=== PATIENT | male | born 1950 | race African-American/Black ===

== ENCOUNTER 2017-12-29 02:09 | Emergency (ER) | payer BC, MEDICARE, OTHER ==
[2017-12-29] MEDS ORDERED: NORMAL SALINE 1000 ML 1,000 ML IV ONE ×2 (02:44→05:22)
[2017-12-29] MEDS ORDERED: HALOPERIDOL LACTATE INJ 5 MG/1 ML VIAL IM ONE (02:53)
[2017-12-29] MEDS ORDERED: HALOPERIDOL LACTATE INJ 5 MG/1 ML VIAL ONE (02:54)
[2017-12-29 04:01] LABS: ABSOLUTE BASOPHILS # (AUTO) 0.1 10^3/uL (0.0-0.2); ABSOLUTE LYMPHOCYTES (AUTO) 1.4 10^3/uL (0.5-4.7); ABSOLUTE MONOCYTES (AUTO) 1.3 10^3/uL (0.1-1.4); ABSOLUTE NEUT (AUTO) 13.6 10^3/uL (1.7-8.2); BASOPHILS % (AUTO) 0.4 % (0-2); EOSINOPHILS % (AUTO) 0.2 % (0-6); HEMATOCRIT 41.5 % (37.9-51.0); HEMOGLOBIN 13.9 g/dL (13.5-17.0); LYMPHOCYTES % (AUTO) 8.6 % (13-45); MEAN CORPUSCULAR HEMOGLOBIN 27.5 pg (27.0-33.4); MEAN CORPUSCULAR HGB CONC 33.6 g/dL (32.0-36.0); MEAN CORPUSCULAR VOLUME 82 fl (80-97); PLATELET COUNT 273 10^3/uL (150-450); RED BLOOD COUNT 5.06 10^6/uL (4.35-5.55); RED CELL DISTRIBUTION WIDTH 15.8 % (11.5-14.0); SEGMENTED NEUTROPHILS % (AUTO) 82.8 % (42-78); TOTAL CELLS COUNTED % (AUTO) 100 %; WHITE BLOOD COUNT 16.4 10^3/uL (4.0-10.5)
[2017-12-29 04:29] LABS: ALANINE AMINOTRANSFERASE 21 U/L (21-72); ALBUMIN 4.5 g/dL (3.5-5.0); ALKALINE PHOSPHATASE 92 U/L (38-126); ANION GAP 10 (5-19); ASPARTATE AMINO TRANSFERASE 33 U/L (17-59); BILIRUBIN,DIRECT 0.5 mg/dL (0.0-0.4); BILIRUBIN,TOTAL 0.7 mg/dL (0.2-1.3); BLOOD UREA NITROGEN 16 mg/dL (7-20); CALCIUM 9.6 mg/dL (8.4-10.2); CARBON DIOXIDE 27 mmol/L (22-30); CHLORIDE 106 mmol/L (98-107); GLUCOSE 133 mg/dL (75-110); POTASSIUM 4.6 mmol/L (3.6-5.0); SODIUM 143.2 mmol/L (137-145); TOTAL PROTEIN 7.9 g/dL (6.3-8.2)
[2017-12-29 04:31] LABS: ACETAMINOPHEN < 10 ug/mL (10-30); ALCOHOL < 10 mg/dL (NONE DETECTED); SALICYLATE < 1.0 mg/dL (2.0-20.0)
[2017-12-29] MEDS ORDERED: LORAZEPAM INJ 2 MG/1 ML VIAL IV ONE (04:43)
[2017-12-29] MEDS ORDERED: LORAZEPAM INJ 2 MG/1 ML VIAL ONE (04:44)
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
[2017-12-29 07:39] LABS: APPEARANCE,URINE SLIGHTLY-CLOUDY; BILIRUBIN,URINE NEGATIVE (NEGATIVE); COLOR,URINE YELLOW; GLUCOSE, URINE NEGATIVE (NEGATIVE); KETONES,URINE 20 mg/dL (NEGATIVE); LEUKOCYTE ESTERASE,URINE NEGATIVE (NEGATIVE); NITRITE,URINE NEGATIVE (NEGATIVE); PROTEIN,URINE NEGATIVE (NEGATIVE); URINE SPECIFIC GRAVITY 1.023; UROBILINOGEN,URINE NEGATIVE mg/dL (<2.0)
[2017-12-29 08:03] LABS: URINE AMPHETAMINES SCREEN NEGATIVE; URINE BARBITURATES SCREEN NEGATIVE; URINE BENZODIAZEPINES SCREEN NEGATIVE; URINE COCAINE SCREEN NEGATIVE; URINE MARIJUANA (THC) SCREEN NEGATIVE; URINE METHADONE SCREEN NEGATIVE; URINE PHENCYCLIDINE SCREEN NEGATIVE
--- NOTE | 2017-12-29 10:01 | ER Document Report ---
Doctor's Note Notes: 12/29/17 10:00 Rounds: Chart reviewed and patient interviewed. Patient is here for evaluation of agitation. He supposedly has a psychiatric disorder, according to his , and is been out of his medications for an unknown period of time. Was brought in during the night and had to receive Haldol and Ativan to control his behavior. All lab studies are essentially normal except for a white cell count of 16,400, but no site for significant infection noted. Patient also had some slight tachycardia, but has received 2 L of fluid and his heart rate this morning is 102-103. Patient seems to answer questions appropriately. Has no complaints or request. Patient appears to be medically stable for transfer or discharge. Obie Whiting MD
[2017-12-29] MEDS: CITALOPRAM HYDROBROMIDE 20 MG TABLET PO SCH (11:59)
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
[2017-12-29] MEDS: RISPERIDONE 0.25 MG TABLET PO SCH ×2 (13:24→17:32)
[2017-12-29] MEDS ORDERED: CLONIDINE 0.2 MG/24 HR PATCH.TDWK TD SCH (13:30)
[2017-12-29] MEDS ORDERED: ZIPRASIDONE MESYLATE INJ/PF 20 MG SDV IM ONE ×2 (15:27→18:05)
--- NOTE | 2017-12-29 17:02 | EKG REPORT ---
SEVERITY:- ABNORMAL ECG - SINUS TACHYCARDIA NONSPECIFIC T ABNORMALITIES, INFERIOR LEADS : Confirmed by: Pamella Gay MD 29-Dec-2017 17:00:57
[2017-12-30] MEDS: ZIPRASIDONE MESYLATE INJ/PF 20 MG SDV IM PRN ×2 (00:48→18:15)
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
[2017-12-30] MEDS: CITALOPRAM HYDROBROMIDE 20 MG TABLET PO SCH (11:02)
[2017-12-30] MEDS: RISPERIDONE 0.25 MG TABLET PO SCH (11:02)
[2017-12-31] MEDS ORDERED: CITALOPRAM HYDROBROMIDE 20 MG TABLET PO ONE (09:51)
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
[2017-12-31 13:03] VITALS: BP 127/74
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
== END 2017-12-31 13:16 | disposition home or self-care (01) ==
LOC: ER 02:09
DX: F19.239 Other psychoactive substance dependence with withdrawal, unspecified (principal); F19.251 Other psychoactive substance dependence with psychoactive substance-induced psychotic disorder with hallucinations; R45.1 Restlessness and agitation; R00.0 Tachycardia, unspecified; F32.9 Major depressive disorder, single episode, unspecified; T43.226A Underdosing of selective serotonin reuptake inhibitors, initial encounter; Z91.128 Patient's intentional underdosing of medication regimen for other reason; Z91.14 Patient's other noncompliance with medication regimen
CPT/HCPCS: 93005; 99285; 96372; 96361; 96374; 36415; 80307 ×4; 85025; 80053; 81001; 93010; J1630; J3490; J2060; J3486 ×2; A9270 ×5

== ENCOUNTER 2018-01-02 07:48 | Emergency (ER) | payer MEDICARE ==
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
[2018-01-02 08:19] LABS: ABSOLUTE EOSINOPHILS # (AUTO) 0.1 10^3/uL (0.0-0.6); ABSOLUTE LYMPHOCYTES (AUTO) 1.6 10^3/uL (0.5-4.7); ABSOLUTE MONOCYTES (AUTO) 0.6 10^3/uL (0.1-1.4); ABSOLUTE NEUT (AUTO) 6.3 10^3/uL (1.7-8.2); BASOPHILS % (AUTO) 0.3 % (0-2); EOSINOPHILS % (AUTO) 0.9 % (0-6); HEMATOCRIT 36.5 % (37.9-51.0); HEMOGLOBIN 12.5 g/dL (13.5-17.0); MEAN CORPUSCULAR HEMOGLOBIN 27.6 pg (27.0-33.4); MEAN CORPUSCULAR HGB CONC 34.2 g/dL (32.0-36.0); MEAN CORPUSCULAR VOLUME 81 fl (80-97); MONOCYTES % (AUTO) 7.4 % (3-13); PLATELET COUNT 269 10^3/uL (150-450); RED BLOOD COUNT 4.54 10^6/uL (4.35-5.55); RED CELL DISTRIBUTION WIDTH 15.3 % (11.5-14.0); SEGMENTED NEUTROPHILS % (AUTO) 73.4 % (42-78); TOTAL CELLS COUNTED % (AUTO) 100 %; WHITE BLOOD COUNT 8.6 10^3/uL (4.0-10.5)
[2018-01-02 08:43] LABS: ACETAMINOPHEN < 10 ug/mL (10-30); ALANINE AMINOTRANSFERASE 28 U/L (21-72); ALCOHOL < 10 mg/dL (NONE DETECTED); ALKALINE PHOSPHATASE 80 U/L (38-126); ANION GAP 9 (5-19); ASPARTATE AMINO TRANSFERASE 31 U/L (17-59); BILIRUBIN,DIRECT 0.4 mg/dL (0.0-0.4); BILIRUBIN,TOTAL 0.8 mg/dL (0.2-1.3); BLOOD UREA NITROGEN 6 mg/dL (7-20); CALCIUM 9.2 mg/dL (8.4-10.2); CARBON DIOXIDE 27 mmol/L (22-30); CHLORIDE 101 mmol/L (98-107); GLUCOSE 118 mg/dL (75-110); POTASSIUM 4.1 mmol/L (3.6-5.0); SALICYLATE < 1.0 mg/dL (2.0-20.0); SODIUM 136.6 mmol/L (137-145); TOTAL PROTEIN 6.8 g/dL (6.3-8.2)
[2018-01-02] MEDS ORDERED: CITALOPRAM HYDROBROMIDE 20 MG TABLET PO ONE (09:48)
[2018-01-02] MEDS ORDERED: HALOPERIDOL 5 MG TABLET PO ONE (09:49)
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
[2018-01-02] MEDS ORDERED: ZIPRASIDONE MESYLATE INJ/PF 20 MG SDV IM ONE ×2 (10:50→12:48)
[2018-01-02] MEDS ORDERED: CHLORPROMAZINE HCL INJ 25 MG/1 ML AMPULE IM ONE (13:21)
[2018-01-02] MEDS: CHLORPROMAZINE HCL INJ 25 MG/1 ML AMPULE IM PRN ×2 (13:28→21:57)
[2018-01-02] MEDS ORDERED: BENZTROPINE MESYLATE INJ 2 MG/2 ML AMPULE IM SCH (13:30)
[2018-01-02] MEDS ORDERED: CLONIDINE 0.2 MG/24 HR PATCH.TDWK TD ONE (17:29)
[2018-01-02] MEDS ORDERED: CLONIDINE 0.2 MG/24 HR PATCH.TDWK ONE (17:46)
[2018-01-03] MEDS ORDERED: OLANZAPINE INJ/PF 10 MG SDV IM ONE (00:08)
--- NOTE | 2018-01-03 10:35 | ER Document Report ---
Doctor's Note Notes: 01/03/18 10:34 Rounds: Chart reviewed and patient sleeping at this time so not interviewed. Patient required both Geodon and Thorazine IM to control his behavior after he returned to the emergency department yesterday afternoon. Vital signs of all been normal. Patient reportedly had behavioral changes secondary to having stopped his Celexa. I am ordering him 40 mg of Celexa p.o. now. Vital signs are all essentially normal. Lab studies were all essentially normal. Patient appears to be medically stable for transfer or discharge. Obie Whiting MD
[2018-01-03] MEDS ORDERED: CITALOPRAM HYDROBROMIDE 20 MG TABLET PO ONE ×2 (10:36→14:00)
[2018-01-03] MEDS ORDERED: BENZTROPINE MESYLATE 1 MG TABLET PO SCH (13:30)
[2018-01-03 15:39] VITALS: BP 130/78
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
== END 2018-01-03 15:39 | disposition home or self-care (01) ==
LOC: ER 07:48
DX: F23 Brief psychotic disorder (principal); F19.959 Other psychoactive substance use, unspecified with psychoactive substance-induced psychotic disorder, unspecified; Z78.1 Physical restraint status
CPT/HCPCS: 99285; 96372; 36415; 80307 ×3; 85025; 80053; A9270 ×4; J0515; J3230; J3490; J3486

== ENCOUNTER 2018-11-28 11:46 | Inpatient (IN) | payer OTHER, MEDICARE ==
--- NOTE | 2018-11-28 12:58 | ER Document Report ---
ED Medical Screen (RME) - General Chief Complaint: General Weakness Stated Complaint: WEAKNESS Time Seen by Provider: 11/28/18 12:52 Primary Care Provider: JAYNA AMARO PA-C [Primary Care Provider] - Follow up as needed Mode of Arrival: Wheelchair Information source: Patient, Relative Notes: 68-year-old male presented to ED for complaint of increased weakness and not being able to walk due to pain in both knees. He states he has generalized weakness and pain in both knees. He states he was diagnosed with Lyme's disease several months ago and is been taken doxycycline and has been getting progressively weaker since then. He states on he was walking into the house and fell due to the weakness. He states his family had to get him up and during this assistance they have caused him to have spasms in his arms and legs. He states he can no longer walk at all. He states he is dizzy at times. He denies any fevers chills shortness of breath or anything else going on at this time. I have greeted and performed a rapid initial assessment of this patient. A comprehensive ED assessment and evaluation of the patient, analysis of test results and completion of medical decision making process will be conducted by an additional ED providers. - Related Data Allergies/Adverse Reactions: No Known Allergies Allergy (Unverified 12/29/17 03:04) Past Medical History Renal/ Medical History: Denies: Hx Peritoneal Dialysis Physical Exam - Vital signs Vitals: Temp Pulse Resp BP Pulse Ox 98.6 F 88 18 133/80 H 96 11/28/18 11:51 11/28/18 11:51 11/28/18 11:51 11/28/18 11:51 11/28/18 11:51 Course - Vital Signs Vital signs: Temp Pulse Resp BP Pulse Ox 98.6 F 88 18 133/80 H 96 11/28/18 11:51 11/28/18 11:51 11/28/18 11:51 11/28/18 11:51 11/28/18 11:51 Doctor's Discharge - Discharge Referrals: JAYNA AMARO PA-C [Primary Care Provider] - Follow up as needed
[2018-11-28 13:53] LABS: ABSOLUTE EOSINOPHILS # (AUTO) 0.1 10^3/uL (0.0-0.6); ABSOLUTE LYMPHOCYTES (AUTO) 1.7 10^3/uL (0.5-4.7); ABSOLUTE MONOCYTES (AUTO) 0.8 10^3/uL (0.1-1.4); ABSOLUTE NEUT (AUTO) 8.6 10^3/uL (1.7-8.2); BASOPHILS % (AUTO) 0.3 % (0-2); EOSINOPHILS % (AUTO) 0.7 % (0-6); HEMATOCRIT 41.9 % (37.9-51.0); HEMOGLOBIN 14.1 g/dL (13.5-17.0); LYMPHOCYTES % (AUTO) 15.4 % (13-45); MEAN CORPUSCULAR HEMOGLOBIN 27.3 pg (27.0-33.4); MEAN CORPUSCULAR HGB CONC 33.6 g/dL (32.0-36.0); MEAN CORPUSCULAR VOLUME 81 fl (80-97); MONOCYTES % (AUTO) 7.1 % (3-13); PLATELET COUNT 287 10^3/uL (150-450); RED BLOOD COUNT 5.15 10^6/uL (4.35-5.55); RED CELL DISTRIBUTION WIDTH 15.4 % (11.5-14.0); SEGMENTED NEUTROPHILS % (AUTO) 76.5 % (42-78); TOTAL CELLS COUNTED % (AUTO) 100 %; WHITE BLOOD COUNT 11.3 10^3/uL (4.0-10.5)
[2018-11-28 14:14] LABS: ALBUMIN 4.1 g/dL (3.5-5.0); ALKALINE PHOSPHATASE 93 U/L (38-126); ANION GAP 9 (5-19); ASPARTATE AMINO TRANSFERASE 17 U/L (17-59); BILIRUBIN,DIRECT 0.3 mg/dL (0.0-0.4); BILIRUBIN,TOTAL 0.5 mg/dL (0.2-1.3); BLOOD UREA NITROGEN 17 mg/dL (7-20); CALCIUM 9.3 mg/dL (8.4-10.2); CARBON DIOXIDE 26 mmol/L (22-30); CHLORIDE 103 mmol/L (98-107); CREATINE KINASE 101 U/L (55-170); GLUCOSE 98 mg/dL (75-110); POTASSIUM 4.1 mmol/L (3.6-5.0); TOTAL PROTEIN 6.6 g/dL (6.3-8.2)
[2018-11-28 14:24] LABS: CREATINE KINASE MB 0.62 ng/mL (<4.55)
[2018-11-28 14:25] LABS: TROPONIN I < 0.012 ng/mL
--- NOTE | 2018-11-28 14:27 | ER Document Report ---
ED General - General Chief Complaint: General Weakness Stated Complaint: WEAKNESS Time Seen by Provider: 11/28/18 12:52 Mode of Arrival: Wheelchair Notes: Patient is a 68-year-old male that presents to the emergency department for chief complaint of weakness, inability to walk. Patient states that for nearly a week he has been having progressive weakness, particularly in the left side, he said numbness that he feels in both arms and both legs as well. But he has not been able to get out of bed, has had to wear a brief, because he is been unable to get to the bathroom, due to the weakness. He states he was recently diagnosed with Lyme's disease that was worked up by a [place] physician, and was started on doxycycline, he is schizophrenic, but has no new medications. He denies being on any medications for cholesterol, heart disease, or lung disease. Denies prior history of strokes or TIAs. He denies any significant pain at this time, denies headaches, but does admit to having occasional lightheadedness. Denies any blurred vision or loss of vision. Past Medical History: Schizophrenia, Lyme's disease Past Surgical History: Denies any recent surgery Social History: Lives at home with family, denies tobacco, alcohol or illicit drug use. Family History: Reviewed and noncontributory for presenting illness Allergies: Reviewed, see documented allergy list. REVIEW OF SYSTEMS: Other than noted above, the 12 point review of systems was reviewed with the patient and were negative, all pertinent findings are included in the HPI. PHYSICAL EXAMINATION: Vital signs reviewed, nursing noted reviewed. GENERAL: Well-appearing, well-nourished and in no acute distress. HEAD: Atraumatic, normocephalic. EYES: Eyes appear normal, extraocular movements intact, sclera anicteric, conjunctiva are normal. ENT: nares patent, oropharynx clear without exudates. Moist mucous membranes. NECK: Normal range of motion, supple without lymphadenopathy LUNGS: Breath sounds clear to auscultation bilaterally and equal. No wheezes rales or rhonchi. HEART: Regular rate and rhythm without murmurs ABDOMEN: Soft, nontender, normoactive bowel sounds. No rebound, guarding, or rigidity. No masses appreciated. EXTREMITIES: Nontender, good range of motion, no pitting or edema. NEUROLOGICAL: Patient is noted to have weakness in his left upper extremity, and left lower extremity, compared to the right, and states he feels a decreased sensation in both the upper and lower extremities bilaterally, but seems to be somewhat worse on the left compared to the right. Visual mcnamara are intact, no significant facial asymmetry, no dysarthria, the patient does seem to have a hard time understanding what I am asking him to do for physical exam, which may be a mild degree of receptive aphasia. PSYCH: Normal mood, normal affect. SKIN: Warm, Dry, normal turgor, no rashes or lesions noted on exposed skin - Related Data Allergies/Adverse Reactions: No Known Allergies Allergy (Unverified 12/29/17 03:04) Past Medical History - General Information source: Patient, Relative - Social History Smoking Status: Never Smoker Family History: Reviewed & Not Pertinent Patient has suicidal ideation: No Patient has homicidal ideation: No Renal/ Medical History: Denies: Hx Peritoneal Dialysis Psychiatric Medical History: Reports: Hx Schizophrenia Physical Exam - Vital signs Vitals: Temp Pulse Resp BP Pulse Ox 98.6 F 88 18 133/80 H 96 11/28/18 11:51 11/28/18 11:51 11/28/18 11:51 11/28/18 11:51 11/28/18 11:51 Course - Re-evaluation Re-evalutation: Patient seen and examined vital signs reviewed. Laboratory data and imaging were ordered as appropriate for the patient's presen ting symptoms and complaint, with consideration of any critical or life threatening conditions that may be associated with their obtained history and exam as noted above. Results were reviewed when available and demonstrated negative CT imaging of the head, blood work was otherwise unremarkable, UA negative as well, patient's clinical exam was concerning for a CVA, that subacute, and likely happened a few days ago, but is now continued to have persistent weakness in the left upper and left lower extremity. The patient was re-evaluated and was stable, no further neurological changes. Evaluation was most consistent with left-sided weakness, concern for subacute CVA Results were discussed with the patient at this point after careful consideration I feel that that patient should be admitted to the hospital. This was discussed with the patient that it is in the best interest for their care to be admitted for further evaluation and management. Patient agreed with this plan of care. A call was placed to the admitting provider, Davion Michael PA-C who graciously accepted the patient onto their service. *Note is created using voice recognition software and may contain spelling, syntax or grammatical errors. Laboratory 11/28/18 11/28/18 11/28/18 13:34 13:34 13:34 WBC 11.3 H RBC 5.15 Hgb 14.1 Hct 41.9 MCV 81 MCH 27.3 MCHC 33.6 RDW 15.4 H Plt Count 287 Lymph % (Auto) 15.4 [place] % (Auto) 7.1 Eos % (Auto) 0.7 Baso % (Auto) 0.3 Absolute Neuts (auto) 8.6 H Absolute Lymphs (auto) 1.7 Absolute Monos (auto) 0.8 Absolute Eos (auto) 0.1 Absolute Basos (auto) 0.0 Seg Neutrophils % 76.5 PT INR Sodium 138.0 Potassium 4.1 Chloride 103 Carbon Dioxide 26 Anion Gap 9 BUN 17 Creatinine 0.76 Est GFR ( Amer) > 60 Est GFR (MDRD) Non-Af > 60 Glucose 98 Calcium 9.3 Total Bilirubin 0.5 Direct Bilirubin 0.3 Neonat Total Bilirubin Not Reportable Neonat Direct Bilirubin Not Reportable Neonat Indirect Bili Not Reportable AST 17 ALT 13 Alkaline Phosphatase 93 Creatine Kinase 101 CK-MB (CK-2) 0.62 Troponin I < 0.012 Total Protein 6.6 Albumin 4.1 Lipase 64.3 TSH Free T4 Free T3 pg/mL Urine Color Urine Appearance Urine pH Ur Specific [place] Urine Protein Urine Glucose (UA) Urine Ketones Urine Blood Urine Nitrite Urine Bilirubin Urine Urobilinogen Ur Leukocyte Esterase Urine WBC (Auto) Urine RBC (Auto) Squamous Epi Cells Auto Urine Mucus (Auto) Urine Ascorbic Acid Urine Opiates Screen Urine Methadone Screen Ur Barbiturates Screen Ur Phencyclidine Scrn Ur Amphetamines Screen U Benzodiazepines Scrn Urine Cocaine Screen U Marijuana (THC) Screen 11/28/18 11/28/18 11/28/18 13:34 13:34 15:07 WBC RBC Hgb Hct MCV MCH MCHC RDW Plt Count Lymph % (Auto) [place] % (Auto) Eos % (Auto) Baso % (Auto) Absolute Neuts (auto) Absolute Lymphs (auto) Absolute Monos (auto) Absolute Eos (auto) Absolute Basos (auto) Seg Neutrophils % PT 13.7 INR 1.04 Sodium Potassium Chloride Carbon Dioxide Anion Gap BUN Creatinine Est GFR ( Amer) Est GFR (MDRD) Non-Af Glucose Calcium Total Bilirubin Direct Bilirubin Neonat Total Bilirubin Neonat Direct Bilirubin Neonat Indirect Bili AST ALT Alkaline Phosphatase Creatine Kinase CK-MB (CK-2) Troponin I Total Protein Albumin Lipase TSH 0.68 Free T4 1.21 Free T3 pg/mL 3.76 Urine Color YELLOW Urine Appearance SLIGHTLY-CLOUDY Urine pH 6.0 Ur Specific [place] 1.028 Urine Protein NEGATIVE Urine Glucose (UA) NEGATIVE Urine Ketones 20 H Urine Blood NEGATIVE Urine Nitrite NEGATIVE Urine Bilirubin NEGATIVE Urine Urobilinogen NEGATIVE Ur Leukocyte Esterase NEGATIVE Urine WBC (Auto) 2 Urine RBC (Auto) 1 Squamous Epi Cells Auto <1 Urine Mucus (Auto) MOD Urine Ascorbic Acid NEGATIVE Urine Opiates Screen Urine Methadone Screen Ur Barbiturates Screen Ur Phencyclidine Scrn Ur Amphetamines Screen U Benzodiazepines Scrn Urine Cocaine Screen U Marijuana (THC) Screen 11/28/18 15:07 WBC RBC Hgb Hct MCV MCH MCHC RDW Plt Count Lymph % (Auto) [place] % (Auto) Eos % (Auto) Baso % (Auto) Absolute Neuts (auto) Absolute Lymphs (auto) Absolute Monos (auto) Absolute Eos (auto) Absolute Basos (auto) Seg Neutrophils % PT INR Sodium Potassium Chloride Carbon Dioxide Anion Gap BUN Creatinine Est GFR ( Amer) Est GFR (MDRD) Non-Af Glucose Calcium Total Bilirubin Direct Bilirubin Neonat Total Bilirubin Neonat Direct Bilirubin Neonat Indirect Bili AST ALT Alkaline Phosphatase Creatine Kinase CK-MB (CK-2) Troponin I Total Protein Albumin Lipase TSH Free T4 Free T3 pg/mL Urine Color Urine Appearance Urine pH Ur Specific [place] Urine Protein Urine Glucose (UA) Urine Ketones Urine Blood Urine Nitrite Urine Bilirubin Urine Urobilinogen Ur Leukocyte Esterase Urine WBC (Auto) Urine RBC (Auto) Squamous Epi Cells Auto Urine Mucus (Auto) Urine Ascorbic Acid Urine Opiates Screen NEGATIVE Urine Methadone Screen NEGATIVE Ur Barbiturates Screen NEGATIVE Ur Phencyclidine Scrn NEGATIVE Ur Amphetamines Screen NEGATIVE U Benzodiazepines Scrn NEGATIVE Urine Cocaine Screen NEGATIVE U Marijuana (THC) Screen NEGATIVE Brain MRI with MRA 11/28/18 00:00 IMPRESSION: No evidence for significant stenosis or occlusion at the [place]. Head MRI 11/28/18 00:00 IMPRESSION: 1. No evidence for acute ischemia. Chronic microvascular ischemic changes. 2. High signal intensity on the T2-weighted images and FLAIR imaging at the medial right mastoid air cells, may be secondary to cholesterol granuloma or mastoiditis. Evaluation with contrast-enhanced MRI may be worthwhile. EVIDENCE OF ACUTE STROKE: NO. Head CT 11/28/18 14:25 IMPRESSION: MILD CHRONIC CHANGES OF ATROPHY AND MICROVASCULAR ISCHEMIA. NO ACUTE PROCESS. EVIDENCE OF ACUTE STROKE: NO. Chest X-Ray 11/28/18 16:05 IMPRESSION: NO ACUTE DISEASE. - Vital Signs Vital signs: Temp Pulse Resp BP Pulse Ox 98.4 F 77 18 142/87 H 98 11/28/18 20:38 11/28/18 20:38 11/28/18 17:24 11/28/18 20:38 11/28/18 20:38 - Laboratory Result Diagrams: 11/28/18 13:34 11/28/18 13:34 Laboratory results interpreted by me: 11/28/18 11/28/18 13:34 15:07 WBC 11.3 H RDW 15.4 H Absolute Neuts (auto) 8.6 H Urine Ketones 20 H - EKG Interpretation by Me Additional EKG results interpreted by me: EKG demonstrates sinus rhythm with a ventricular rate of 90 bpm, normal axis, normal intervals, T wave inversions in leads III and aVF, no ST elevation, compared with prior EKG from 12/29/2017, without significant change. Discharge - Discharge Clinical Impression: Left-sided weakness Condition: Stable Disposition: ADMITTED INPATIENT Admitting Provider: Kayla (Hospitalist) - Davion Michael PA-C Unit Admitted: [facility]
--- NOTE | 2018-11-28 15:10 | RADIOLOGY REPORT (SQ) ---
EXAM DESCRIPTION: CT HEAD WITHOUT COMPLETED DATE/TIME: 11/28/2018 2:52 pm REASON FOR STUDY: left sided weakness COMPARISON: None. TECHNIQUE: Axial images acquired through the brain without intravenous contrast. Images reviewed wi th bone, brain and subdural windows. Images stored on PACS. All CT scanners at this facility use dose modulation, iterative reconstruction, and/or weight based d osing when appropriate to reduce radiation dose to as low as reasonably achievable (ALARA). [facility]: Dose Right [facility]: CareDose [facility]: Dose Right [facility]: Teradose 4D [facility]: Smart Blueseed RADIATION DOSE: CT Rad equipment meets quality standard of care and radiation dose reduction techniq ues were employed. CTDIvol: 48.6 mGy. DLP: 930 mGy-cm. mGy. LIMITATIONS: None. FINDINGS: VENTRICLES: Prominent. CEREBRUM: No masses. No hemorrhage. No midline shift. Areas of low density in the white matter mos t likely due to chronic micro-vascular ischemic change. No evidence for acute infarction. CEREBELLUM: No masses. No hemorrhage. No alteration of density. No evidence for acute infarction. EXTRAAXIAL SPACES: Mild age-related involutional change. No fluid collections. No masses. ORBITS AND GLOBE: No intra- or extraconal masses. Normal contour of globe without masses. CALVARIUM: No fracture. PARANASAL SINUSES: No fluid or mucosal thickening. SOFT TISSUES: No mass or hematoma. OTHER: No other significant finding. IMPRESSION: MILD CHRONIC CHANGES OF ATROPHY AND MICROVASCULAR ISCHEMIA. NO ACUTE PROCESS. EVIDENCE OF ACUTE STROKE: NO. TECHNICAL DOCUMENTATION: JOB ID: [id number] Quality ID # [id number]: Final reports with documentation of one or more dose reduction techniques (e.g., Au tomated exposure control, adjustment of the mA and/or kV according to patient size, use of iterative reconstruction technique) 2010 [email or web address]- All Rights Reserved Reading location - IP/workstation name: [email or web address]
[2018-11-28 15:35] LABS: APPEARANCE,URINE SLIGHTLY-CLOUDY; BILIRUBIN,URINE NEGATIVE (NEGATIVE); COLOR,URINE YELLOW; GLUCOSE, URINE NEGATIVE (NEGATIVE); KETONES,URINE 20 mg/dL (NEGATIVE); LEUKOCYTE ESTERASE,URINE NEGATIVE (NEGATIVE); NITRITE,URINE NEGATIVE (NEGATIVE); PROTEIN,URINE NEGATIVE (NEGATIVE); URINE SPECIFIC GRAVITY 1.028; UROBILINOGEN,URINE NEGATIVE mg/dL (<2.0)
[2018-11-28] MEDS ORDERED: ZOLPIDEM TARTRATE 5 MG TABLET PO PRN (15:58)
[2018-11-28] MEDS ORDERED: ACETAMINOPHEN 325 MG TABLET PO PRN (15:58)
[2018-11-28] MEDS ORDERED: ONDANSETRON HCL INJ/PF 4 MG/2 ML SDV IV PRN (15:58)
[2018-11-28] MEDS ORDERED: MAGNESIUM HYDROXIDE SUSP 30 ML UDCUP PO PRN (15:58)
[2018-11-28] MEDS ORDERED: ONDANSETRON 4 MG TAB.RAPDIS PO PRN (15:58)
[2018-11-28] MEDS ORDERED: NORMAL SALINE 1000 ML 1,000 ML IV PRN (15:58)
[2018-11-28 16:32] LABS: INTERNATIONAL RATION (INR) 1.04; PROTHROMBIN TIME 13.7 SEC (11.4-15.4)
--- NOTE | 2018-11-28 16:35 | PDOC H&P ---
History of Present Illness Admission Date/PCP: 11/28/18 15:44 JAYNA AMARO PA-C Patient admitted through the emergency room on 11/28/2018 for progressive weakness history come from a combination of the family in the room as well as patient. Story is that for over a month now the patient has been having progressive weakness starting in both hands going up into the arms and now down into the feet legs. Patient is state that about 2 weeks ago he was diagnosed with Lyme's disease someone at the [place] given doxycycline 100 mg twice daily. Patient has no history of being bitten by a tick. Patient has no histo ry of fever chills nausea vomiting or rash. Patient denies any headache, no nuchal rigidity, no photophobia. No recent change in weight For the last week he has been at bedrest because if he gets out of bed he "falls down" family states that he is "wobbly" family brought him into the hospital tod ay to the emergency room because he is getting weaker. History of Present Illness: JUANA CALL is a 68 year old male Past Medical History Medical History: None Cardiac Medical History: Reports: None Pulmonary Medical History: Reports: None Neurological Medical History: Reports: None Malignancy Medical History: Reports: None Musculoskeltal Medical History: Reports: None Psychiatric Medical History: Reports: Schizoaffective Disorder - They state that the patient is schizophrenic and is on medication. Social History Smoking Status: Never Smoker - Advance Directive Resuscitation Status: Do Not Resuscitate Family History Family History: Reviewed & Not Pertinent Parental Family History Reviewed: No Children Family History Reviewed: No Sibling(s) Family History Reviewed.: No Medication/Allergy Home Medications: Clonidine HCl 0.1 mg PO QHS #7 tablet 12/31/17 Allergies/Adverse Reactions: No Known Allergies Allergy (Unverified 12/29/17 03:04) Review of Systems Constitutional: ABSENT: chills, fever(s), headache(s), weight gain, weight loss Eyes: ABSENT: visual disturbances Cardiovascular: ABSENT: chest pain, dyspnea on exertion, edema, orthropnea, palpitations Respiratory: ABSENT: cough, hemoptysis Gastrointestinal: ABSENT: abdominal pain, constipation, diarrhea, hematemesis, hematochezia, nausea, vomiting Neurological: PRESENT: frequent falls, lack of coordination, numbness, paresthesias, weakness Psychiatric: ABSENT: anxiety, depression, homidical ideation, suicidal ideation Physical Exam Vital Signs: Temp Pulse Resp BP Pulse Ox 98.6 F 88 18 133/80 H 96 11/28/18 11:51 11/28/18 11:51 11/28/18 11:51 11/28/18 11:51 11/28/18 11:51 Intake & Output 11/27/18 11/28/18 11/29/18 06:59 06:59 06:59 Weight 92.6 kg General appearance: PRESENT: mild distress Head exam: PRESENT: atraumatic, normocephalic Eye exam: PRESENT: conjunctiva pink, EOMI, PERRLA. ABSENT: scleral icterus Neck exam: ABSENT: carotid bruit, JVD, lymphadenopathy, thyromegaly Respiratory exam: PRESENT: clear to auscultation yanelis. ABSENT: rales, rhonchi, wheezes Cardiovascular exam: PRESENT: RRR. ABSENT: diastolic murmur, rubs, systolic murmur Pulses: PRESENT: normal dorsalis pedis pul GI/Abdominal exam: PRESENT: normal bowel sounds, soft. 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 Biceps and triceps motor exam bilaterally is normal. Patient has weakness of both lower extremities left grea ter than right. Patient has difficulty with rapid alternating movements bilaterally Results Laboratory Results: 11/28/18 13:34 11/28/18 13:34 11/28/18 11/28/18 11/28/18 13:34 13:34 15:07 WBC 11.3 H RBC 5.15 Hgb 14.1 Hct 41.9 MCV 81 MCH 27.3 MCHC 33.6 RDW 15.4 H Plt Count 287 Seg Neutrophils % 76.5 Sodium 138.0 Potassium 4.1 Chloride 103 Carbon Dioxide 26 Anion Gap 9 BUN 17 Creatinine 0.76 Est GFR ( Amer) > 60 Glucose 98 Calcium 9.3 Total Bilirubin 0.5 AST 17 Alkaline Phosphatase 93 Total Protein 6.6 Albumin 4.1 Lipase 64.3 Urine Color YELLOW Urine Appearance SLIGHTLY-CLOUDY Urine pH 6.0 Ur Specific [place] 1.028 Urine Protein NEGATIVE Urine Glucose (UA) NEGATIVE Urine Ketones 20 H Urine Blood NEGATIVE Urine Nitrite NEGATIVE Ur Leukocyte Esterase NEGATIVE Urine WBC (Auto) 2 Urine RBC (Auto) 1 11/28/18 11/28/18 13:34 13:34 Creatine Kinase 101 CK-MB (CK-2) 0.62 Troponin I < 0.012 Impressions: Head CT 11/28/18 14:25 IMPRESSION: MILD CHRONIC CHANGES OF ATROPHY AND MICROVASCULAR ISCHEMIA. NO ACUTE PROCESS. EVIDENCE OF ACUTE STROKE: NO. Assessment and Plan - Diagnosis (1) Generalized muscle weakness Is this a current diagnosis for this admission?: Yes Plan: Since generalized weakness has been going on for over a month now and worsened within the last week. Patient cannot get out of bed now due to weakness legs. Patient was having to have someone feeding as a spasticity and weakness in his hands. Patient is never had anything like this before. It is progressive started in the hands, went to his arms, then down into his legs (2) Schizophrenia Is this a current diagnosis for this admission?: Yes Plan: Patient has had schizophrenia for a long time and is on medication, unfo rtunately ever we do not have those meds and by the family (3) Lyme disease, unspecified Is this a current diagnosis for this admission?: Yes Plan: According to the family this was diagnosed at the [place] [facility] approximately 2 weeks ago. Patient was placed on doxycycline twice daily. Patient and family are unsure of other than blood work how the test was diagnosed. Patient was waiting to see a neurologist according to the family, but no appointment has been made (4) Left-sided weakness Is this a current diagnosis for this admission?: Yes Plan: Patient has generalized weakness but the left side both upper and lower is definitely weaker than the right. This is been ongoing for over a month with gradual worsening - Time Time Spent with patient: 25-34 minutes - Lyme's disease is certainly consideration however other neurologic diseases such as DM Berg, ALS are possibility. Talk to the family about trying to get a neurology consult in the next day or 2. Patient will have MRI and MRA as well as LP performed over the next day or so. When asked about CODE STATUS patient did not want to be resuscitated
[2018-11-28 16:56] LABS: FREE T3 3.76 pg/mL (2.77-5.27); FREE T4 (FREE THYROXINE) 1.21 ng/dL (0.78-2.19)
[2018-11-28 17:10] LABS: THYROID STIMULATING HORMONE 0.68 uIU/mL (0.47-4.68)
[2018-11-28 17:57] LABS: URINE AMPHETAMINES SCREEN NEGATIVE; URINE BARBITURATES SCREEN NEGATIVE; URINE BENZODIAZEPINES SCREEN NEGATIVE; URINE COCAINE SCREEN NEGATIVE; URINE MARIJUANA (THC) SCREEN NEGATIVE; URINE METHADONE SCREEN NEGATIVE; URINE PHENCYCLIDINE SCREEN NEGATIVE
--- NOTE | 2018-11-28 18:05 | RADIOLOGY REPORT (SQ) ---
EXAM DESCRIPTION: CHEST 2 VIEWS COMPLETED DATE/TIME: 11/28/2018 5:06 pm REASON FOR STUDY: Weakness COMPARISON: 08/17/2009. EXAM PARAMETERS: NUMBER OF VIEWS: two views TECHNIQUE: Digital Frontal and Lateral radiographic views of the chest acquired. RADIATION DOSE: NA LIMITATIONS: none FINDINGS: LUNGS AND PLEURA: No acute infiltrates or effusions. MEDIASTINUM AND HILAR STRUCTURES: No masses or contour abnormalities. HEART AND VASCULAR STRUCTURES: The heart and pulmonary vasculature are normal. . BONES: No acute findings. HARDWARE: None in the chest. OTHER: No other significant finding. IMPRESSION: NO ACUTE DISEASE. TECHNICAL DOCUMENTATION: JOB ID: [id number] 2010 [employer]- All Rights Reserved Reading location - IP/workstation name: [email or web address]
--- NOTE | 2018-11-28 19:50 | RADIOLOGY REPORT (SQ) ---
EXAM DESCRIPTION: MRI HEAD WITHOUT COMPLETED DATE/TIME: 11/28/2018 7:01 pm REASON FOR STUDY: progressive weakness COMPARISON: CT head 11/28/2018, 08/17/2009 TECHNIQUE: Multiplanar imaging includes non-contrasted T1, T2, FLAIR, and Diffusion with ADC map seq uences. Images stored on PACS. LIMITATIONS: None. FINDINGS: ANATOMY: Normal vascular flow voids. Pituitary fossa normal. CSF SPACES: Normal in size and contour. No hemorrhage. CEREBRUM: Scattered high-signal intensity lesions throughout the white matter on FLAIR imaging with d istribution suggesting chronic micro-vascular ischemic change. Sulci and gyri normal in size and con tour. No evidence of hemorrhage, mass effect or extraaxial fluid collection. POSTERIOR FOSSA: No signal alteration. No hemorrhage. No edema or mass effect. There is high signal intensity on the T2 weighted images and FLAIR imaging at the medial right mastoid air cells. DIFFUSION: Negative for acute or sub-acute infarction. ORBITS: Symmetrical globes. PARANASAL SINUSES: No air-fluid levels. IMPRESSION: 1. No evidence for acute ischemia. Chronic microvascular ischemic changes. 2. High signal intensity on the T2-weighted images and FLAIR imaging at the medial right mastoid air cells, may be secondary to cholesterol granuloma or mastoiditis. Evaluation with contrast-enhanced M RI may be worthwhile. EVIDENCE OF ACUTE STROKE: NO. TECHNICAL DOCUMENTATION: JOB ID: [id number] 2010 [employer]- All Rights Reserved Reading location - IP/workstation name: [email or web address]
--- NOTE | 2018-11-28 19:55 | RADIOLOGY REPORT (SQ) ---
EXAM DESCRIPTION: MRA HEAD WITHOUT COMPLETED DATE/TIME: 11/28/2018 7:01 pm REASON FOR STUDY: progressive weakness COMPARISON: MRI head 11/28/2018. TECHNIQUE: Axial 3-D [id number] acquisition imaging performed through the brain in the area of t he [place]. Images reformatted using 3-D MIPS. LIMITATIONS: None. FINDINGS: SOURCE IMAGES: No unexpected findings on source images. No large masses. 3-D MIP: No occlusions. No significant stenosis. IMPRESSION: No evidence for significant stenosis or occlusion at the [place]. TECHNICAL DOCUMENTATION: JOB ID: [id number] 2010 [employer]- All Rights Reserved Reading location - IP/workstation name: [email or web address]
[2018-11-28] MEDS ORDERED: OLANZAPINE 5 MG TABLET PO SCH (22:00)
[2018-11-28] MEDS ORDERED: BENZTROPINE MESYLATE 1 MG TABLET PO SCH (22:00)
[2018-11-28] MEDS: FAMOTIDINE 20 MG TABLET PO SCH (23:10)
--- NOTE | 2018-11-29 00:15 | EKG REPORT ---
SEVERITY:- ABNORMAL ECG - SINUS RHYTHM NONSPECIFIC T ABNORMALITIES, INFERIOR LEADS : Confirmed by: Pamella Gay MD 29-Nov-2018 00:14:36
[2018-11-29] MEDS: DOXYCYCLINE HYCLATE 100 MG TABLET PO SCH ×2 (05:31→09:30)
[2018-11-29 07:06] LABS: ABSOLUTE LYMPHOCYTES (AUTO) 1.5 10^3/uL (0.5-4.7); ABSOLUTE MONOCYTES (AUTO) 0.9 10^3/uL (0.1-1.4); ABSOLUTE NEUT (AUTO) 12.4 10^3/uL (1.7-8.2); BASOPHILS % (AUTO) 0.1 % (0-2); EOSINOPHILS % (AUTO) 0.3 % (0-6); HEMATOCRIT 40.5 % (37.9-51.0); HEMOGLOBIN 13.6 g/dL (13.5-17.0); MEAN CORPUSCULAR HEMOGLOBIN 27.3 pg (27.0-33.4); MEAN CORPUSCULAR HGB CONC 33.6 g/dL (32.0-36.0); MEAN CORPUSCULAR VOLUME 81 fl (80-97); MONOCYTES % (AUTO) 6.1 % (3-13); PLATELET COUNT 289 10^3/uL (150-450); RED CELL DISTRIBUTION WIDTH 15.2 % (11.5-14.0); SEGMENTED NEUTROPHILS % (AUTO) 83.5 % (42-78); TOTAL CELLS COUNTED % (AUTO) 100 %; WHITE BLOOD COUNT 14.8 10^3/uL (4.0-10.5)
[2018-11-29 07:27] LABS: ALBUMIN 4.2 g/dL (3.5-5.0); ALKALINE PHOSPHATASE 94 U/L (38-126); ANION GAP 11 (5-19); ASPARTATE AMINO TRANSFERASE 18 U/L (17-59); BILIRUBIN,DIRECT 0.3 mg/dL (0.0-0.4); BILIRUBIN,TOTAL 0.6 mg/dL (0.2-1.3); BLOOD UREA NITROGEN 13 mg/dL (7-20); CALCIUM 9.4 mg/dL (8.4-10.2); CARBON DIOXIDE 27 mmol/L (22-30); CHLORIDE 100 mmol/L (98-107); GLUCOSE 115 mg/dL (75-110); PHOSPHORUS 3.5 mg/dL (2.5-4.5); POTASSIUM 3.9 mmol/L (3.6-5.0); TOTAL PROTEIN 6.7 g/dL (6.3-8.2)
[2018-11-29] MEDS ORDERED: LORAZEPAM 1 MG TABLET PO SCH (08:00)
--- NOTE | 2018-11-29 09:06 | PDOC DISCHARGE SUMMARY ---
General - Admit/Disc Date/PCP Admission Date/Primary Care Provider: 11/28/18 15:44 JAYNA AMARO PA-C Admitted 11/28/2018 for progressive neurologic weakness Discharge Date: 11/29/18 - Discharge Diagnosis (1) Generalized muscle weakness Is this a current diagnosis for this admission?: Yes Summary: Patient and family are poor historians but the best I can tell is that for the last at least 4 weeks and may be 6 weeks, patient has been having difficulty weakness involving his extremities. According to the patient he started noticing it first in his hands then went up into his arms then down his trunk and now into his legs. Patient and family state that for the last week or long er he has been at bedrest because he "could not get out of bed". According to the family prior to this diagnosis of Lyme's disease patient had no trouble with weakness. Patient states that now he cannot feed himself due to weakness and cannot get out of bed due to weakness he has been at this level of care for the last 8 or 9 days. Patient denies any respiratory difficulties however. Patient denies any recent viral-like syndromes (2) Schizophrenia Is this a current diagnosis for this admission?: Yes Summary: Patient is a well-controlled schizophrenic on his medications. Patient does not exhibit any schizophrenia behavior (3) Lyme disease, unspecified Is this a current diagnosis for this admission?: Yes Summary: According to the patient and his family he was diagnosed with Lyme's disease at a ID clinic about 10 days ago. I believe he was actually started on doxycycline on 19 November. I do not know how he was diagnosed as far as labs. Patient has no history of rash patient has no history of fever patient has no history of a tick bite.. I am suspicious of this diagnosis (4) Left-sided weakness Is this a current diagnosis for this admission?: Yes Summary: The emergency room physician presented this case to me as a potential subacute CVA with left-sided weakness. It is true that the patient is weaker on the left than the right however this does not present as a CVA. Presents more as a progressive neurologic syndrome. Patient denies any previous CVA or MIs - Additional Information Resuscitation Status: Do Not Resuscitate Discharge Diet: As Tolerated Discharge Activity: Bedrest Home Medications: Benztropine Mesylate [Cogentin 1 mg Tablet] 1 mg PO QHS 11/28/18 Doxycycline Hyclate [Vibramycin 100 mg Tablet] 100 mg PO BID MDD filled 11/19 for 21 day supply 11/28/18 Lorazepam [Ativan 0.5 mg Tablet] 0.5 mg PO NOON 11/28/18 Lorazepam [Ativan 1 mg Tablet] 1 mg PO QAM 11/28/18 Olanzapine [Zyprexa] 10 mg PO QHS 11/28/18 Benztropine Mesylate [Cogentin 1 mg Tablet] 1 mg PO QHS tablet 11/29/18 Doxycycline Hyclate [Vibramycin 100 mg Tablet] 100 mg PO Q12 tablet 11/29/18 Lorazepam [Ativan 1 mg Tablet] 1 mg PO QAM tablet 11/29/18 Olanzapine [Zyprexa 5 mg Tablet] 10 mg PO QHS tablet 11/29/18 History of Present Illness History of Present Illness: JUANA CALL is a 68 year old male Patient had a CT head scan in the emergency room which showed just chronic changes of microvascular ischemia no acute process. MRA and MRI of the brain last night showed no abnormalities account for his generalized weakness. There was mention of high signal intensity of the medial right mastoid air cells sug gestive of either mastoiditis or cholesterol granuloma, this is more than likely a incidental finding. I did not perform an LP on the patient because quite honestly results would not change the treatment here at this hospital since we do not have neurology available. I also thought that it might subject the patient to another lumbar puncture at the tertiary center when he was transferred. Had the patient been worsening or in a life-threatening situation LP would have been performed, however this is been going on for 4 to 6 weeks now and he was in no respiratory distress. Patient has been accepted at [facility] by neurology Physical Exam Vital Signs: Temp Pulse Resp BP Pulse Ox 98.5 F 76 18 142/74 H 97 11/29/18 07:32 11/29/18 07:32 11/29/18 07:32 11/29/18 07:32 11/29/18 07:32 Intake & Output 11/28/18 11/29/18 11/30/18 06:59 06:59 06:59 Intake Total 150 Output Total 200 Balance -50 Weight 93.3 kg General appearance: PRESENT: mild distress Head exam: PRESENT: atraumatic Respiratory exam: PRESENT: clear to auscultation yanelis. ABSENT: rales, rhonchi, wheezes Cardiovascular exam: PRESENT: RRR. ABSENT: diastolic murmur, rubs, systolic murmur Neurological exam: PRESENT: alert, awake, oriented to person, oriented to place, oriented to time, oriented to situation, other - Further evaluation of patient's reflexes today revealed them to be absent in both upper and lower extremities. 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 Patient is unable to be tested concerning gait due to weakness and being unable to get out of bed. Patient does seem to have an unusual "blowing" duration. Psychiatric exam: PRESENT: appropriate affect, normal mood, other - Patient is very pleasant and appreciative of his care. ABSENT: homicidal ideation, suicidal ideation Results Laboratory Results: 11/29/18 06:15 11/29/18 06:15 11/28/18 11/28/18 11/28/18 13:34 13:34 13:34 WBC 11.3 H RBC 5.15 Hgb 14.1 Hct 41.9 MCV 81 MCH 27.3 MCHC 33.6 RDW 15.4 H Plt Count 287 Seg Neutrophils % 76.5 Sodium 138.0 Potassium 4.1 Chloride 103 Carbon Dioxide 26 Anion Gap 9 BUN 17 Creatinine 0.76 Est GFR ( Amer) > 60 Glucose 98 Lactic Acid Calcium 9.3 Phosphorus Magnesium Total Bilirubin 0.5 AST 17 Alkaline Phosphatase 93 Ammonia Total Protein 6.6 Albumin 4.1 Lipase 64.3 TSH 0.68 Free T4 1.21 Free T3 pg/mL 3.76 Urine Color Urine Appearance Urine pH Ur Specific [place] Urine Protein Urine Glucose (UA) Urine Ketones Urine Blood Urine Nitrite Ur Leukocyte Esterase Urine WBC (Auto) Urine RBC (Auto) 11/28/18 11/28/18 11/28/18 15:07 17:40 17:40 WBC RBC Hgb Hct MCV MCH MCHC RDW Plt Count Seg Neutrophils % Sodium Potassium Chloride Carbon Dioxide Anion Gap BUN Creatinine Est GFR ( Amer) Glucose Lactic Acid 0.8 Calcium Phosphorus Magnesium Total Bilirubin AST Alkaline Phosphatase Ammonia < 8.7 L Total Protein Albumin Lipase TSH Free T4 Free T3 pg/mL Urine Color YELLOW Urine Appearance SLIGHTLY-CLOUDY Urine pH 6.0 Ur Specific [place] 1.028 Urine Protein NEGATIVE Urine Glucose (UA) NEGATIVE Urine Ketones 20 H Urine Blood NEGATIVE Urine Nitrite NEGATIVE Ur Leukocyte Esterase NEGATIVE Urine WBC (Auto) 2 Urine RBC (Auto) 1 11/29/18 11/29/18 06:15 06:15 WBC 14.8 H RBC 5.00 Hgb 13.6 Hct 40.5 MCV 81 MCH 27.3 MCHC 33.6 RDW 15.2 H Plt Count 289 Seg Neutrophils % 83.5 H Sodium 138.2 Potassium 3.9 Chloride 100 Carbon Dioxide 27 Anion Gap 11 BUN 13 Creatinine 0.77 Est GFR ( Amer) > 60 Glucose 115 H Lactic Acid Calcium 9.4 Phosphorus 3.5 Magnesium 2.1 Total Bilirubin 0.6 AST 18 Alkaline Phosphatase 94 Ammonia Total Protein 6.7 Albumin 4.2 Lipase TSH Free T4 Free T3 pg/mL Urine Color Urine Appearance Urine pH Ur Specific [place] Urine Protein Urine Glucose (UA) Urine Ketones Urine Blood Urine Nitrite Ur Leukocyte Esterase Urine WBC (Auto) Urine RBC (Auto) 11/28/18 11/28/18 11/28/18 13:34 13:34 17:40 Creatine Kinase 101 92 CK-MB (CK-2) 0.62 Troponin I < 0.012 Impressions: Brain MRI with MRA 11/28/18 00:00 IMPRESSION: No evidence for significant stenosis or occlusion at the hoopa of [place]. Head MRI 11/28/18 00:00 IMPRESSION: 1. No evidence for acute ischemia. Chronic microvascular ischemic changes. 2. High signal intensity on the T2-weighted images and FLAIR imaging at the medial right mastoid air cells, may be secondary to cholesterol granuloma or mastoiditis. Evaluation with contrast-enhanced MRI may be worthwhile. EVIDENCE OF ACUTE STROKE: NO. Head CT 11/28/18 14:25 IMPRESSION: MILD CHRONIC CHANGES OF ATROPHY AND MICROVASCULAR ISCHEMIA. NO ACUTE PROCESS. EVIDENCE OF ACUTE STROKE: NO. Chest X-Ray 11/28/18 16:05 IMPRESSION: NO ACUTE DISEASE. Qualifiers - * PATIENT BEING DISCHARGED WITH ANY OF THE FOLLOWING DIAGNOSIS: No VTE patient discharged on overlapping Therapy?: Yes Acute Heart Failure - Is this a Heart Failure Patient?: No Follow-up Appointment scheduled within 7 days?: No, document reason - Patient being transferred to [facility] [place] today. Plan Time Spent: Greater than 30 Minutes - Patient being transferred to [facility] to the care of neurology. Patient agrees with transfer. Patient is stable for transfer
[2018-11-29] MEDS: FAMOTIDINE 20 MG TABLET PO SCH (09:30)
[2018-11-29] MEDS ORDERED: DOCUSATE SODIUM 100 MG CAPSULE PO SCH (10:00)
[2018-11-29] MEDS ORDERED: ENOXAPARIN SODIUM INJ 40 MG/0.4 ML DISP.SYRIN SUBCUT SCH (10:00)
[2018-11-29 13:46] VITALS: BP 128/81
--- NOTE | 2018-11-29 14:14 | RADIOLOGY REPORT (SQ) ---
EXAM DESCRIPTION: CAROTID DOPPLER COMPLETED DATE/TIME: 11/29/2018 2:05 pm REASON FOR STUDY: progressive weakness COMPARISON: None. TECHNIQUE: Grayscale ultrasound, Doppler velocity and spectra, and color Doppler images acquired of the extra-cranial carotid and vertebral arteries. Images stored on PACS. LIMITATIONS: None. FINDINGS: RIGHT CAROTID CCA Velocities: Within normal limits. ICA Velocities Peak systolic 96 cm/s. End diastolic 30 cm/s. Proximal ICA/CCA peak systolic ratio 0.77. Minimal intimal thickening. LEFT CAROTID CCA Velocities: Within normal limits. ICA Velocities Peak systolic 98 cm/s. End diastolic 35 cm/s. Proximal ICA/CCA peak systolic ratio 0.82. Increased velocity seen in the proximal CCA on the left. VERTEBRAL ARTERIES: Antegrade flow. Normal waveforms. SUBCLAVIAN ARTERIES: No finding. OTHER: No other significant finding. IMPRESSION: NO HEMODYNAMICALLY SIGNIFICANT STENOSIS. COMMENT: Quality ID #[id number]: Velocity criteria are extrapolated from the diameter data as defined by t he Society of Radiologists in Ultrasound Consensus Conference. Radiology 2003: 229; 340-346. TECHNICAL DOCUMENTATION: JOB ID: [id number] [employer]- All Rights Reserved Reading location - IP/workstation name: [email or web address]
== END 2018-11-29 14:10 | disposition short-term general hospital (02) | DRG 556 ==
LOC: ER 11:46 → EH 15:38 → UNDOADMIN 15:38 → EH 15:44 → 3S 19:20
PROVIDERS: ADMIT Internal Medicine; ATTEND Internal Medicine
DX: M62.81 Muscle weakness (generalized) (principal); A69.20 Lyme disease, unspecified; F20.9 Schizophrenia, unspecified; Z66 Do not resuscitate
CPT/HCPCS: 36415; 70450; 70544; 70551; 71046; 80053; 80307; 81001; 82140; 82550; 82553; 83605; 83690; 83735; 84100; 84439; 84443; 84481; 84484; 85025; 85610; 85730; 93005; 93010; 93880; 99285; J1650; J7030

== ENCOUNTER 2019-05-06 11:20 | Emergency (ER) | payer OTHER, MEDICARE ==
[2019-05-06 12:34] LABS: ABSOLUTE BASOPHILS # (AUTO) 0.1 10^3/uL (0.0-0.2); ABSOLUTE EOSINOPHILS # (AUTO) 0.1 10^3/uL (0.0-0.6); ABSOLUTE LYMPHOCYTES (AUTO) 1.7 10^3/uL (0.5-4.7); ABSOLUTE MONOCYTES (AUTO) 0.7 10^3/uL (0.1-1.4); ABSOLUTE NEUT (AUTO) 5.7 10^3/uL (1.7-8.2); BASOPHILS % (AUTO) 0.8 % (0-2); EOSINOPHILS % (AUTO) 1.4 % (0-6); HEMATOCRIT 40.4 % (37.9-51.0); HEMOGLOBIN 13.9 g/dL (13.5-17.0); LYMPHOCYTES % (AUTO) 20.7 % (13-45); MEAN CORPUSCULAR HEMOGLOBIN 27.5 pg (27.0-33.4); MEAN CORPUSCULAR HGB CONC 34.4 g/dL (32.0-36.0); MEAN CORPUSCULAR VOLUME 80 fl (80-97); MONOCYTES % (AUTO) 8.4 % (3-13); PLATELET COUNT 325 10^3/uL (150-450); RED BLOOD COUNT 5.06 10^6/uL (4.35-5.55); RED CELL DISTRIBUTION WIDTH 14.6 % (11.5-14.0); SEGMENTED NEUTROPHILS % (AUTO) 68.7 % (42-78); TOTAL CELLS COUNTED % (AUTO) 100 %; WHITE BLOOD COUNT 8.4 10^3/uL (4.0-10.5)
[2019-05-06 12:37] LABS: APPEARANCE,URINE CLEAR; BILIRUBIN,URINE NEGATIVE (NEGATIVE); COLOR,URINE STRAW; GLUCOSE, URINE NEGATIVE (NEGATIVE); KETONES,URINE NEGATIVE (NEGATIVE); LEUKOCYTE ESTERASE,URINE NEGATIVE (NEGATIVE); NITRITE,URINE NEGATIVE (NEGATIVE); PROTEIN,URINE NEGATIVE (NEGATIVE); URINE SPECIFIC GRAVITY 1.003; UROBILINOGEN,URINE NEGATIVE mg/dL (<2.0)
[2019-05-06 12:52] LABS: ALBUMIN 4.2 g/dL (3.5-5.0); ALKALINE PHOSPHATASE 104 U/L (38-126); ANION GAP 11 (5-19); ASPARTATE AMINO TRANSFERASE 17 U/L (17-59); BILIRUBIN,DIRECT 0.3 mg/dL (0.0-0.4); BILIRUBIN,TOTAL 0.5 mg/dL (0.2-1.3); BLOOD UREA NITROGEN 3 mg/dL (7-20); CALCIUM 9.7 mg/dL (8.4-10.2); CARBON DIOXIDE 27 mmol/L (22-30); CHLORIDE 101 mmol/L (98-107); GLUCOSE 123 mg/dL (75-110); POTASSIUM 3.8 mmol/L (3.6-5.0); TOTAL PROTEIN 7.3 g/dL (6.3-8.2)
[2019-05-06 12:52] LABS: URINE BARBITURATES SCREEN NEGATIVE; URINE BENZODIAZEPINES SCREEN NEGATIVE; URINE COCAINE SCREEN NEGATIVE; URINE MARIJUANA (THC) SCREEN NEGATIVE; URINE METHADONE SCREEN NEGATIVE; URINE PHENCYCLIDINE SCREEN NEGATIVE
[2019-05-06 12:53] LABS: ACETAMINOPHEN < 10 ug/mL (10-30); ALCOHOL < 10 mg/dL (NONE DETECTED); SALICYLATE < 1.0 mg/dL (2.0-20.0)
[2019-05-06 12:53] LABS: URINE AMPHETAMINES SCREEN NEGATIVE
--- NOTE | 2019-05-06 13:02 | EKG REPORT ---
SEVERITY:- NORMAL ECG - SINUS RHYTHM : Confirmed by: Barbra Alexis 06-May-2019 13:01:06
--- NOTE | 2019-05-06 13:07 | ER Document Report ---
ED General - General Chief Complaint: Psych Problem Stated Complaint: BEHAVORIAL PROBLEM Time Seen by Provider: 05/06/19 12:57 Primary Care Provider: ANA PAULA MA MD [Primary Care Provider] - Follow up as needed Mode of Arrival: Medic Information source: Patient, Emergency Med Personnel Notes: 68-year-old black male arrives by EMS with chief complaint of being noncompliant on his psychiatric medicines. Patient has a history of being paranoid. He has been taking his Ativan and feels quite well. He denies any excessive anxiety or suicidal or homicidal ideation. Is comfortable in room hallway #3 and is being observed by nursing staff in front of the nursing station. He reports he is not hungry or thirsty at this time. Labs were taken and patient has normal- appearing CMP CBC urinalysis and UDS TRAVEL OUTSIDE OF THE [place] IN LAST 30 DAYS: No - Related Data Allergies/Adverse Reactions: No Known Allergies Allergy (Unverified 12/29/17 03:04) Past Medical History - General Information source: Patient, Emergency Med Personnel - Social History Smoking Status: Never Smoker Cigarette use (# per day): No Chew tobacco use (# tins/day): No Smoking Education Provided: No Frequency of alcohol use: None Drug Abuse: None Family History: Reviewed & Not Pertinent Patient has suicidal ideation: No Patient has homicidal ideation: No Renal/ Medical History: Denies: Hx Peritoneal Dialysis Psychiatric Medical History: Reports: Hx Depression, Hx Schizoaffective Disorder - They state that the patient is schizophrenic and is on medication., Hx Schizophrenia Review of Systems - Review of Systems Constitutional: No symptoms reported EENT: No symptoms reported Cardiovascular: No symptoms reported Respiratory: No symptoms reported Gastrointestinal: No symptoms reported Genitourinary: No symptoms reported Male Genitourinary: No symptoms reported Musculoskeletal: No symptoms reported Skin: No symptoms reported Hematologic/Lymphatic: No symptoms reported Neurological/Psychological: No symptoms reported Physical Exam - Vital signs Vitals: Temp Pulse Resp BP Pulse Ox 99.0 F 105 H 16 126/83 H 97 05/06/19 11:31 05/06/19 11:31 05/06/19 11:31 05/06/19 11:31 05/06/19 11:31 Interpretation: Tachycardic, Febrile - General General appearance: Appears well In distress: None - HEENT Head: Normocephalic Eyes: Normal Conjunctiva: Normal Cornea: Normal Extraocular movements intact: Yes Eyelashes: Normal Pupils: PERRL Pharynx: Normal Neck: Normal - Respiratory Respiratory status: No respiratory distress Chest status: Nontender Breath sounds: Normal Chest palpation: Normal - Cardiovascular Rhythm: Regular Heart sounds: Normal auscultation Murmur: No Friction rub: No Anastasiya's crunch: No - Abdominal Inspection: Normal Distension: No distension Bowel sounds: Normal Tenderness: Nontender - Back Back: Normal - Extremities General upper extremity: Normal inspection General lower extremity: Normal inspection - Neurological Neuro grossly intact: Yes Cognition: Normal Orientation: AAOx4 [place] Coma Scale Eye Opening: Spontaneous [place] Coma Scale Verbal: Oriented Speech: Normal Cranial nerves: Normal - Psychological Associated symptoms: Anxious - Skin Skin Temperature: Warm Skin Moisture: Dry Course - Vital Signs Vital signs: Temp Pulse Resp BP Pulse Ox 99.0 F 105 H 16 126/83 H 97 05/06/19 11:31 05/06/19 11:31 05/06/19 11:31 05/06/19 11:31 05/06/19 11:31 - Laboratory Result Diagrams: 05/06/19 12:15 05/06/19 12:15 Laboratory results interpreted by me: 05/06/19 05/06/19 12:15 12:15 RDW 14.6 H BUN 3 L Glucose 123 H Salicylates < 1.0 L Acetaminophen < 10 L - EKG Interpretation by Pa EKG shows normal: Sinus rhythm Discharge - Discharge Clinical Impression: Schizophrenia Qualifiers: Schizophrenia type: unspecified Qualified Code(s): F20.9 - Schizophrenia, unspecified Disposition: HOME, SELF-CARE Additional Instructions: follow-up with mental health this week; return to ER for true emergencies; take your medicines like you are requested to by your psychiatrist. Referrals: ANA PAULA MA MD [Primary Care Provider] - Follow up as needed
[2019-05-06] MEDS ORDERED: ZIPRASIDONE HCL 20 MG CAPSULE PO ONE (13:32)
[2019-05-06] MEDS ORDERED: LORAZEPAM 1 MG TABLET PO ONE (13:32)
[2019-05-06 15:00] VITALS: BP 138/99
--- NOTE | 2019-05-08 12:32 | PSYCHOLOGICAL NOTE ---
Psych Note - Psych Note Date seen by psych provider: 05/06/19 Time seen by psych provider: 12:29 - initial evaluation Psych Note: Presenting Problem: Patient is in the ED this afternoon via EMS or AMS (per family increased paranoia, yelling and screaming). Patient reported he was in the ED because "I forgot my medication/Lorazepam." He identified when he doesn't take it he "gets nervous." He stated "I embarrassed my mother." When challenged about mother versus he said it was his who was embarrassed. he provided her name and number to be contacted. When asked about SI/HI he commented "not really, I may have said something, I am not a fool I wouldn't william t anyone and I don't want to do anything to myself." He presented calm and cooperative, sitting in hallway bed with hands folded in his lap. Patient admitted to "having trouble with his memory." Chart review revealed patient previously seen by [facility] team 12/2017 and 01/2018 for similar etiology, there was concern for SSRI withdrawal (no medications for 3-4 days), had been on Celexa and Ativan at the time and was restarted. Head MRI and CT from 01/2018 has language consistent with nuerodegenerative processes. [facility] team contacted Nurse Massey at the local [facility]. She noted patient was diagnosed with Paranoid Schizophrenia in 2017 and said there was documentation of first bout of paranoia in 1993 then again in 2003 when he got back to [place]. She stated he was last prescribed Cogentin 1MG QHS, Celexa 10MG QD, Zyprexa 10MG QHS and Lorazepam 1MG QAM/0.5MG noon. She stated the Lorazepam was last filled October 2018 and has since . She noted [facility] had [facility]: has not been seen for MH or PCM since August 2018 or earlier. She reported he had PCM appointment 01/11/2019 but cancelled, Psych appointment 03/22/2019 but cancelled, and Psych appointment 04/07/2019 and no showed. She identified patent has called in via phone for refills. They were made aware of Head MRI and CT 01/2018 language suggesting neurodegenerative processes (faxed them both reports for care cooordination/continuity of care). They scheduled follow up appointment for 05/11/2019 at 0900 with an hour slot to try to evaluate for the cognitive issues . Patient made fair eye contact and was engaged in evaluation so did not appear to be responding to internal stimuli. he was made aware medications being adjusted and [facility]. UDS was negative for all substances to include benzos. [facility] ED [facility] Health Audit Intern obtained collateral from who reported "shell shock (aka PTSD) from . She stated he does not take his medications as directed. When family member arrived to pick patient up they noted he has been taking the Lorazepam for a long time. Diagnosis: AMS Paranoia Medication recommendations made by the psychiatric medication provider, Dr. Pennie MD., includes: Add Depakote ER 250MG PO twice a day for mood stabilization/neurocognitive depression Add Buspar 5MG PO twice a day for calming effect/anxiety/depression/sleep Attending ED Physician wrote script for Lorazepam to ween and prevent possibility of seizures since family reported he has been on it for a long time. Impression/Plan: Patient is cleared from acute psychiatric services. He denied SI/HI, made fair eye contact and was able to engage in evaluation. He presented calm and cooperative until after awhile when he became antsy. He made fair eye contact and was engaged in evaluation suggesting no psychosis. he was able to identify he has trouble with memory. Head MRI and CT from 01/2018 has language consistent with neurodegenerative processes. Provided medication regimen to address mood while taking into consideration neurodegenerative processes. Coordinated with the local [facility] for follow up appointment 05/11/2019 at 0900 where they will evaluate for cognitive issues. Faxed them the supporting Head MRI and CT documentation from 01/2018. Patient discharge to family member and informed of medication changes and [facility] appointment. Consulted with Dr. Estrada regarding the management and care of patient. ED Physician in agreement with recommendations.
== END 2019-05-06 15:00 | disposition home or self-care (01) ==
LOC: ER 11:20
DX: F20.9 Schizophrenia, unspecified (principal); R00.0 Tachycardia, unspecified; R50.9 Fever, unspecified
CPT/HCPCS: 36415; 80053; 80307; 81001; 85025; 93005; 93010; 99284